=== PATIENT | female | born 1995 | race Caucasian/White ===

== ENCOUNTER 2017-06-17 11:49 | Observation (INO) | payer MEDICAID ==
[2017-06-17] MEDS ORDERED: ACETAMINOPHEN 500 MG TAB PO ONE (14:07)
[2017-06-17] MEDS ORDERED: CYCLOBENZAPRINE 10 MG TAB PO ONE (14:08)
[2017-06-17 14:41] LABS: PLATELET COUNT 199 10^3/uL (150-400)
[2017-06-17 17:30] VITALS: BP 106/59; PULSE 112; TEMP 99; O2SAT 94
--- NOTE | 2017-06-17 18:46 | SOAPPROG ---
SOAP Progress Note Assessment/Plan: Assessment: 21 y/o at 21.3 weeks EGA c/b (-h/o kidney stone with G2, BMI 33) Round ligament pain back pain-likely normal discomfort - resolved with flexeril fever 38.2 C. resolved with tylenol Plan: Will d/c home with PTL precautions. Recommended maternity support belt and will consider chiropractic referral Instructed to call with any fevers or increasing pain FU in office [address] Chester. Agrees with POC 06/17/17 18:28 06/17/17 19:11 Subjective: Patient presents with new onset of intense pelvic pain that radiates to back that is constant since squatting down when getting out of toddlers bed this am. She describes hearing a "pop" at this time. She denies leakage of fluid or change in her vaginal discharge. She reports that she has had some back pain that has been getting worse the last few weeks, but today it has been much more severe. She states the pain is primarily in lower back, but radiates down into her pelvis and lower abdomen. Denies urinary urgency, frequency or pain. Denies VB or regular rhythmic contractions. + FM. Constitutional: Denies any fever, chills, or fatigue HEENT: denies any visual changes, difficulty swallowing, hearing loss Cardiovascular: Denies any chest pain, palpitations, leg swelling Respiratory: denies any cough, wheezing, or shortness of breathe GI: Denies any nausea, vomiting, diarrhea, constipation : denies any dysuria, urgency, frequency, vaginal bleeding Musculoskeletal: see HPI Skin: denies any rashes Neuro: denies any headache, seizures, lightheadedness, dizziness, or loss of consciousness Psychiatric: denies any depression, anxiety, or SI/HI thoughts Objective: Vital Signs Temp Pulse Resp BP Pulse Ox 37.2 C 112 H 106/59 L 94 06/17/17 17:28 06/17/17 17:28 06/17/17 17:28 06/17/17 17:28 Laboratory Results 06/17/17 14:30 06/17/17 14:30 UA - normal CBC / CMP - WBC 16.9 GC/chlam - pending Wet prep neg clue, yeast or trichomoniasis Fever and pain resolved with Acetaminophen 1 gm and Flexeril 10 mg po - Time Spent With Patient Time Spent With Patient: Approximately 45 min was spent with patient, of which greater than 50%, 30 min was [id number] on counseling and coordination of care. - Pending Discharge Pending Discharge Within 24 Hours: Yes Pending Discharge Date: 06/18/17 Pending Discharge Time: 11:00 Physical Exam - Physical Exam General Appearance: WD/WN, alert, mild distress, obese EENT: PERRL/EOMI Neck: non-tender Respiratory: lungs clear Cardiac/Chest: regular rate, rhythm Abdomen: soft, other (abdomen tender bilaterally lower abdomen over round ligaments, fundus non-tender. Uterus soft, no contractions noted. ) Pelvic Exam: other (closed thick/high, spec: wet prep neg, GC/CT collected. ) Rectal: deferred Back: Normal inspection Skin: normal color Extremities: normal range of motion Neuro/Psych: alert, normal mood/affect ICD10 Worksheet Patient Problems: Problems Problem Status Onset Back pain affecting Acute Pelvic pain affecting Acute Supervision of normal in second trimester Acute
== END 2017-06-17 18:25 | disposition home or self-care (01) ==
LOC: FLD 12:03 → EDSTATUS 12:07
PROVIDERS: ADMIT Advanced Practice Midwife; ATTEND Advanced Practice Midwife
DX: O99.89 Other specified diseases and conditions complicating pregnancy, childbirth and the puerperium (principal); R10.2 Pelvic and perineal pain; M54.5 Low back pain; Z3A.21 21 weeks gestation of pregnancy

== ENCOUNTER → 2017-08-12 | Outpatient (CLI) | payer MEDICAID | LOC: FIMAGING 07:54 | PROVIDERS: ATTEND Obstetrics & Gynecology | DX: O36.5930 Maternal care for other known or suspected poor fetal growth, third trimester, not applicable or unspecified (principal); O36.5130 Maternal care for known or suspected placental insufficiency, third trimester, not applicable or unspecified; Z3A.29 29 weeks gestation of pregnancy ==

== ENCOUNTER → 2017-08-26 | Outpatient (CLI) | payer MEDICAID | LOC: FIMAGING 13:52 | PROVIDERS: ATTEND Obstetrics & Gynecology | DX: O36.5930 Maternal care for other known or suspected poor fetal growth, third trimester, not applicable or unspecified (principal); Z3A.31 31 weeks gestation of pregnancy ==

== ENCOUNTER → 2017-09-09 | Outpatient (CLI) | payer MEDICAID | LOC: FIMAGING 11:44 | PROVIDERS: ATTEND Obstetrics & Gynecology | DX: O36.5930 Maternal care for other known or suspected poor fetal growth, third trimester, not applicable or unspecified (principal); O36.5130 Maternal care for known or suspected placental insufficiency, third trimester, not applicable or unspecified; Z3A.33 33 weeks gestation of pregnancy ==

== ENCOUNTER → 2017-09-14 | Outpatient (CLI) | payer MEDICAID | LOC: FIMAGING 14:59 | PROVIDERS: ATTEND Obstetrics & Gynecology | DX: O36.5930 Maternal care for other known or suspected poor fetal growth, third trimester, not applicable or unspecified (principal); Z3A.34 34 weeks gestation of pregnancy ==

== ENCOUNTER → 2017-09-21 | Outpatient (CLI) | payer MEDICAID | LOC: FIMAGING 08:05 | PROVIDERS: ATTEND Obstetrics & Gynecology | DX: O36.5930 Maternal care for other known or suspected poor fetal growth, third trimester, not applicable or unspecified (principal); Z3A.35 35 weeks gestation of pregnancy ==

== ENCOUNTER → 2017-09-28 | Outpatient (CLI) | payer MEDICAID | LOC: FIMAGING 08:16 | PROVIDERS: ATTEND Obstetrics & Gynecology | DX: O36.5930 Maternal care for other known or suspected poor fetal growth, third trimester, not applicable or unspecified (principal); Z3A.36 36 weeks gestation of pregnancy ==

== ENCOUNTER 2017-09-29 23:19 | Observation (INO) | payer MEDICAID ==
[2017-09-29] MEDS ORDERED: TERBUTALINE SULFATE 1 MG/ML VIAL SC PRN (23:25)
== END 2017-09-30 01:00 | disposition home or self-care (01) ==
LOC: FLD 23:19
PROVIDERS: ADMIT Obstetrics & Gynecology; ATTEND Obstetrics & Gynecology
DX: O47.9 False labor, unspecified (principal); Z3A.36 36 weeks gestation of pregnancy
CPT/HCPCS: 59025; G0378

== ENCOUNTER 2017-10-05 06:00 | Inpatient (IN) | payer MEDICAID ==
[2017-10-05] MEDS ORDERED: LIDOCAINE 1% 300 MG/30 ML SDV SC PRN (06:43)
[2017-10-05] MEDS ORDERED: LR 1,000 ML IV PRN (06:43)
[2017-10-05] MEDS ORDERED: IBUPROFEN 600 MG TAB PO PRN (06:43)
[2017-10-05] MEDS ORDERED: MISOPROSTOL 200 MCG TAB PR PRN (06:43)
[2017-10-05] MEDS ORDERED: OXYTOCIN/RINGERS LACTATE 1,000 ML IV PRN (06:43)
[2017-10-05] MEDS ORDERED: EPSOM SALT 454 GM TP PRN (06:43)
[2017-10-05] MEDS ORDERED: OLIVE OIL 118 ML BTL MISC PRN (06:43)
[2017-10-05] MEDS ORDERED: TERBUTALINE SULFATE 1 MG/ML VIAL IV PRN (06:43)
[2017-10-05] MEDS ORDERED: LR 500 ML IV PRN (07:32)
[2017-10-05] MEDS ORDERED: OXYTOCIN/RINGERS LACTATE 500 ML IV SCH (08:00)
[2017-10-05 08:39] LABS: PLATELET COUNT 165 10^3/uL (150-400)
[2017-10-05] MEDS ORDERED: LIDOCAINE 1% 300 MG/30 ML SDV ONE (08:57)
[2017-10-05] MEDS ORDERED: OLIVE OIL 118 ML BTL ONE (08:57)
[2017-10-05] MEDS ORDERED: AMMONIA AROMATIC 1 EACH AMP IH ONE (08:57)
[2017-10-05] MEDS ORDERED: MISOPROSTOL 200 MCG TAB ONE (08:58)
--- NOTE | 2017-10-05 08:58 | PDGENHP ---
History and Physical History and Physical: CARE: [facility] HPI: Patient is a 22 yo G 3 P 2 at 37 weeks ega who presents to L&D for IOL for IUGR with increased dopplers. She states baby has been active, denies regular painful contractions, LOF or VB. EDC: 10/26/2017 which is based on LMP: 01/19/2017 which is known and consistent with Ultrasound at 8 weeks. Her is complicated by: IUGR (3rd %) with increased dopplers Elevated 1 hour GTT - never completed 3 hour High BMI - 33 pre- Review of Systems: Constitutional: Denies any fever, chills, or fatigue HEENT: denies any visual changes, difficulty swallowing, hearing loss Cardiovascular: Denies any chest pain, palpitations, leg swelling Respiratory: denies any cough, wheezing, or shortness of breathe GI: Denies any nausea, vomiting, diarrhea, constipation : denies any dysuria, urgency, frequency, vaginal bleeding Musculoskeletal: denies any muscle or bone pain Skin: denies any rashes Neuro: denies any headache, seizures, lightheadedness, dizziness, or loss of consciousness Psychiatric: denies any depression, anxiety, or SI/HI thoughts HISTORY: Previous OB history: uncomplicated 2014, 2016 - both at term. Past medical history: Kidney stones with G2 Past surgical history: none Medications: PNV Allergies (list reaction): NKDA LABS: Rh: O pos ABS: Neg Rubella: Immune HbsAg: NR HIV: NR VDRL: NR 1hr: 158 - never did 3 hour GC: Neg Chlamydia: Neg Pap: Normal GBS: neg All genetic screening WNL Torch titers negative BMI: (prepreg) 33 PHYSICAL EXAM: Constitutional: WN, A&Ox3 HEENT: normocephalic atraumatic, supple Heart: RRR, no murmur Chest: CTA-B Abdomen: Soft, nontender, gravid SVE: 1-2/60/-2 Extremities: sml pedal edema, negative constanza's sign Neuro: grossly normal Psych: normal affect assessment: Reassuring FHTs, baseline 130s +accels, no decels, moderate variability Contractions: toco- irregular contx Assessment: 1) 22 yo G 3 P 2 with IUP@ 37 weeks ega - IOL for IUGR and increased dopplers 2) IUGR - 3rd % at last growth U/S at 33 weeks. 3) GBS neg 4) Cat 1 FHR tracing Plan: 1) Admit to L&D 2) Will place palmer bulb and start pitocin induction per protocol 3) Continuous monitoring 4) AROM when able 5) Pain relief as patient desires 6) Anticipate
--- NOTE | 2017-10-05 10:42 | OBPROG ---
Labor Progress Note Assessment/Plan: Assessment: Plan: Objective: 10/05/17 07:50 Patient ABO/Rh O POSITIVE 10/05/17 07:50 Oxytocin Orders Assessment - Pre-Induction/Augmentation Assessment Gestational Age: 37 week(s) and 0 day(s) ICD10 Worksheet Patient Problems: Problems Problem Status Onset Back pain affecting Acute Pelvic pain affecting Acute Supervision of normal in second trimester Acute
--- NOTE | 2017-10-05 12:43 | OBPROG ---
Labor Progress Note Assessment/Plan: Assessment: 22 y/o at 37 weeks ega IOL IUGR with elevated dopplers AROM clear fluid at 1235 Category 1 EFM Pitocin 8 mu Plan: Continue pitocin administration per protocol Pain relief as patient desires Anticipate 10/05/17 19:16 Subjective/Intrapartum Course: 10/05/17 19:20 Doing well, still fairly comfortable but contractions starting to get stronger and more regular Objective: 10/05/17 07:50 Patient ABO/Rh O POSITIVE 10/05/17 07:50 - SVE Dilation (cm): 4 Effacement (%): 75 Station: -1 Membranes: AROM Amniotic Fluid Color: Clear - Contraction Pattern Assessment Current Contraction Pattern: Regular - Procedures Non-surgical Procedures: Amniotomy - Physical Exam General Appearance: WD/WN, alert Estimated Weight: 2501-3400g Neck: non-tender Respiratory: normal breath sounds Cardiac/Chest: regular rate, rhythm Skin: normal color, warm/dry Neuro/Psych: alert, oriented x 3 Oxytocin Orders Assessment - Pre-Induction/Augmentation Assessment Gestational Age: 37 week(s) and 0 day(s) ICD10 Worksheet Patient Problems: Problems Problem Status Onset IUGR, Acute Vaginal delivery Acute Back pain affecting Acute Pelvic pain affecting Acute Supervision of normal in second trimester Acute
[2017-10-05] MEDS ORDERED: HYDROCODONE/APAP 5/325 TAB PO PRN (18:43)
[2017-10-05] MEDS ORDERED: HYDROCORTISONE 0.5% CREAM TP PRN (18:43)
--- NOTE | 2017-10-05 19:14 | OBDEL ---
Info Type: Vaginal Presentation at Delivery: Vertex L&D Analgesia/Anesthesia Type: None GBS+: No Intrapartum Medications: Generic Name Dose Route Start Last Admin Trade Name Freq PRN Reason Stop Dose Admin Lactated Ringer's 1,000 mls @ 0 mls/hr 10/05/17 06:43 10/05/17 09:44 Lr IV 10/06/17 06:42 1,000 mls PRN PRN Administration SEE PROTOCOL CONDITIONS Protocol Per Protocol Oxytocin/Lactated Ringer's 500 mls @ 0 mls/hr 10/05/17 08:00 10/05/17 09:44 Pitocin 30 Units/Lr (Premix) IV 04/03/18 07:59 500 mls CONT ALBERT Administration Protocol Per Protocol Indications for Delivery: Growth Restriction w/Abnormal Doppler studies Vaginal Delivery - Delivery Provider Delivery Physician/CNM: Daisy Perera - Labor and Delivery Onset of Contractions Date: 10/05/17 Onset of Contractions Time: 10:00 Onset of Contractions Type: Induced Rupture of Membranes Date: 10/05/17 Rupture of Membranes Time: 12:35 Rupture of Membranes Type: Artificial Amniotic Fluid Color: Clear Dilation Complete Date: 10/05/17 Dilation Complete Time: 18:07 Placenta Delivery Date: 10/05/17 Placenta Delivery Time: 18:13 Total Hours of Labor: 8 Non-surgical Procedures: Amniotomy Vaginal Sponge Count Correct: Yes Vaginal Needle Count Correct: Yes Vaginal Sweep Performed: No EBL: 150 Delivery Events: Nuchal Cord - Medications Labor Augmentation/Induction Methods Used: Pitocin, Rocha Bulb Labor Augmentation/Induction Indication: IUGR Data LILIANE: 10/26/17 Gestational Age: 37 week(s) and 0 day(s) Paula Delivery Date: 10/05/17 Delivery Time: 18:08 Sex of : Female Score (1 Min): 8 Score (5 Min): 9 ICD10 Worksheet Patient Problems: Problems Problem Status Onset IUGR, Acute Vaginal delivery Acute Back pain affecting Acute Pelvic pain affecting Acute Supervision of normal in second trimester Acute - ICD10 Problem Qualifiers (1) IUGR, (2) Vaginal delivery
[2017-10-06] MEDS: IBUPROFEN 600 MG TAB PO PRN ×2 (01:21→09:04)
[2017-10-06] MEDS: FERROUS SULFATE 325 MG TAB PO SCH ×2 (09:05→20:52)
[2017-10-06] MEDS: DOCUSATE SODIUM 100 MG CAP PO PRN ×2 (09:05→20:53)
--- NOTE | 2017-10-06 12:20 | OBPP ---
Progress Note Assessment/Plan: Assessment: 22 yo now , PPD1 s/o following IOL at 37 weeks EGA for IOL for IUGR with abnormal dopplers. - Doing great this AM, routine cares, planning on going home tomorrow. - Anemia - rec'd to take Fe supps. - Elevated 1 hour GTT - never completed 3 hour, BG normal on admission, may need GTT PP. JM Subjective/ Course: Adelia is doing well - comfortable "doesn't feel like she had a baby" - not needing any narctoci pain meds. Up and around, tolerating diet. Happy that baby was as big as it was and has done so well. BF going well also. Objective: 10/06/17 06:00 Patient ABO/Rh O POSITIVE 10/05/17 07:50 Temp Pulse Resp BP Pulse Ox 36.4 C 76 16 110/74 10/06/17 08:00 10/06/17 08:00 10/06/17 08:00 10/06/17 08:00 Uterine Position/Fundal Height: At Umbilicus
--- NOTE | 2017-10-07 10:05 | OBGCSDC ---
General Delivery Information - General Info : 4 Para: 3 Abortions: 1 Type: Vaginal L&D Analgesia/Anesthesia Type: None Admission Date: 10/05/17 Labs: Patient ABO/Rh O POSITIVE 10/05/17 07:50 Hct 29.2 % (38.0-47.0) L 10/06/17 06:00 - Hospital Course Intrapartum: 10/05/17 19:20 Doing well, still fairly comfortable but contractions starting to get stronger and more regular : Adelia is doing well - comfortable "doesn't feel like she had a baby" - not needing any narctoci pain meds. Up and around, tolerating diet. Happy that baby was as big as it was and has done so well. BF going well also. 10/07/17 10:05 S) Pt doing well, reports min pain and bleeding. she is ambulating and voiding without difficulty. She is . She desires discharge home today. O) VSS, afebrile constitutional: WNWF, A&Ox3 HEENT: normocephalic, atraumatic, supple Heart: RRR, No murmur Chest: CTA-B Abdomen: Soft, nontender Uterus: Firm at U-2 Lochia: Minimal rubra Perineum: Intact, healing well Extremities: Trace edema, and negative Rui's sign Neuro: Grossly normal A) 22-year-old S/P PPD#2 P) Discharge home today Continue Pelvic rest [id number] Discussed danger signs (infection, preeclampsia, depression, heavy bleeding, etc ) RTO in 2/4/6 weeks Vaginal - Delivery Provider Delivery Physician/CNM: Daisy Perera - Diagnosis Labor: Induced Rupture of Membranes Type: Artificial Amniotic Fluid Color: Clear Delivery Events: Nuchal Cord - Procedures Non-surgical Procedures: Amniotomy - Delivery Non-surgical Procedures: Amniotomy Palmer Data LILIANE: 10/26/17 Gestational Age: 37 week(s) and 2 day(s) Paula Delivery Date: 10/05/17 Delivery Time: 18:08 Sex of : Female Weight (gm): 2514 g Score (1 Min): 8 Score (5 Min): 9
[2017-10-07 10:18] VITALS: BP 115/77
[2017-10-07] MEDS: DOCUSATE SODIUM 100 MG CAP PO PRN (11:18)
[2017-10-07] MEDS: FERROUS SULFATE 325 MG TAB PO SCH (11:18)
== END 2017-10-07 13:40 | disposition home or self-care (01) | DRG 560 ==
LOC: FLD 06:20 → FOB 21:17
PROVIDERS: ADMIT Advanced Practice Midwife; ATTEND Advanced Practice Midwife
PROC: 10E0XZZ Delivery of Products of Conception, External Approach (ICD-10-PCS; principal; 2017-10-05)
PROC: 0U7C7ZZ Dilation of Cervix, Via Natural or Artificial Opening (ICD-10-PCS; principal; 2017-10-05)
PROC: 3E033VJ Introduction of Other Hormone into Peripheral Vein, Percutaneous Approach (ICD-10-PCS; principal; 2017-10-05)
PROC: 10907ZC Drainage of Amniotic Fluid, Therapeutic from Products of Conception, Via Natural or Artificial Opening (ICD-10-PCS; principal; 2017-10-05)
DX: O36.5930 Maternal care for other known or suspected poor fetal growth, third trimester, not applicable or unspecified (principal); Z37.0 Single live birth; Z68.33 Body mass index [BMI] 33.0-33.9, adult; Z3A.37 37 weeks gestation of pregnancy
CPT/HCPCS: J2590